=== PATIENT | female | born 1990 | race Caucasian/White ===

== ENCOUNTER 2018-08-07 14:41 | Emergency (ER) | payer OTHER | END 2018-08-07 18:03 | disposition home or self-care (01) | LOC: FTE 14:41 | DX: S80.01XA Contusion of right knee, initial encounter (principal); S80.02XA Contusion of left knee, initial encounter; M79.602 Pain in left arm; V49.40XA Driver injured in collision with unspecified motor vehicles in traffic accident, initial encounter | CPT/HCPCS: 71045; 72100; 73030; 81025; 99284-25 ==